=== PATIENT | male | born 1990 | race Caucasian/White ===

== ENCOUNTER 2018-09-21 09:19 | Inpatient (IN) | payer BC, OTHER ==
[2018-09-21 09:43] VITALS: BMI 17.9
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
[2018-09-21] MEDS ORDERED: ACETAMINOPHEN 325 MG TABLET (FP) PO PRN ×2 (10:26)
[2018-09-21] MEDS ORDERED: IBUPROFEN 400 MG TABLET (FP) PO PRN (10:26)
[2018-09-21] MEDS ORDERED: MELATONIN 5 MG TABLETS PO PRN (10:26)
[2018-09-21] MEDS ORDERED: MAGNESIUM HYDROX 2400MG/30ML ORAL SUSPENSION 30 ML CUP PO PRN (10:26)
[2018-09-21] MEDS ORDERED: MAGNESIUM CITRATE 300 ML BOTTLE PO PRN (10:26)
[2018-09-21] MEDS ORDERED: MAG HYDROX/AL HYDROX/SIMETH 30 ML UNIT-DOSE CUP PO PRN (10:26)
[2018-09-21] MEDS ORDERED: BISMUTH SUBSALICYLATE 524 MG/30 ML UD PO PRN (10:26)
[2018-09-21] MEDS ORDERED: NICOTINE POLACRILEX 2 MG GUM BUC PRN (10:26)
[2018-09-21] MEDS ORDERED: MENTHOL/PHENOL 1 EACH UD MM PRN (10:26)
[2018-09-21] MEDS ORDERED: METHADONE HCL 10 MG TABLET (FOR DETOX USE ONLY) PO ONE ×2 (10:45→15:30)
[2018-09-21 15:11] LABS: HEMATOCRIT 41.4 % (35.4-49); HEMOGLOBIN 14.1 GM/dL (11.7-16.9); MCH 30.3 pg (25.7-33.7); MEAN PLT VOLUME 7.3 fl (7.5-11.1); PLATELET COUNT 331 K/MM3 (134-434); RBC 4.66 M/mm3 (4.00-5.60); RDW 14.2 % (11.9-15.9); WHITE BLOOD COUNT 9.5 K/mm3 (4.0-10.0)
[2018-09-21 15:19] VITALS: BP 112/74; PULSE 93; TEMP 97
--- NOTE | 2018-09-21 15:31 | EKG ---
Test Reason : Blood Pressure : / mmHG Vent. Rate : 094 BPM Atrial Rate : 094 BPM P-R Int : 110 ms QRS Dur : 098 ms QT Int : 374 ms P-R-T Axes : 045 074 079 degrees QTc Int : 467 ms SINUS RHYTHM WITH SHORT RI OTHERWISE NORMAL ECG NO PREVIOUS ECGS AVAILABLE Confirmed by MD Na, Td ([id number]) on 09/21/2018 3:31:17 PM Referred By: Confirmed By:Td Monzon MD
[2018-09-21 15:43] LABS: ALBUMIN 3.8 g/dl (3.4-5.0); ALK PHOS 80 U/L (45-117); ANION GAP 7 MMOL/L (8-16); BILIRUBIN,TOTAL 0.6 mg/dL (0.2-1); BLOOD UREA NITROGEN 11 mg/dL (7-18); CALCIUM 9.1 mg/dL (8.5-10.1); CHLORIDE 104 mmol/L (98-107); CO2 28 mmol/L (21-32); CREATININE 0.7 mg/dL (0.55-1.3); GLUCOSE,RANDOM 103 mg/dL (74-106); POTASSIUM 4.5 mmol/L (3.5-5.1); SGOT/AST 31 U/L (15-37); SGPT/ALT 23 U/L (13-61); SODIUM 138 mmol/L (136-145); TOT PROT 7.4 g/dl (6.4-8.2)
[2018-09-21] MEDS ORDERED: THIAMINE HCL 100 MG TABLET (FP) PO SCH (22:00)
[2018-09-22] MEDS ORDERED: PRENATAL VITAMINS W/ FOLIC ACID TABLET (FP) PO SCH (10:00)
[2018-09-22] MEDS ORDERED: METHADONE HCL 5 MG TABLET (FOR DETOX USE ONLY) PO ONE (10:00)
[2018-09-23] MEDS ORDERED: METHADONE HCL 10 MG TABLET (FOR DETOX USE ONLY) PO ONE (10:00)
[2018-09-24] MEDS ORDERED: METHADONE HCL 5 MG TABLET (FOR DETOX USE ONLY) PO ONE (06:00)
== END 2018-09-21 16:09 | disposition left against medical advice (07) | DRG 894 ==
LOC: YASAS 09:19 → Y3N 10:43
PROVIDERS: ADMIT Surgery; ATTEND Surgery
PROC: HZ2ZZZZ Detoxification Services for Substance Abuse Treatment (ICD-10-PCS; principal; 2018-09-21)
DX: F11.23 Opioid dependence with withdrawal (principal); F14.20 Cocaine dependence, uncomplicated; F12.20 Cannabis dependence, uncomplicated; F17.210 Nicotine dependence, cigarettes, uncomplicated
CPT/HCPCS: 36415; 80053; 85027; 86593; 87389; 93005; 93010

== ENCOUNTER 2018-09-21 11:46 | Emergency (ER) | payer BC, OTHER ==
[2018-09-21 11:56] VITALS: TEMP 98; BMI 18.2
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
[2018-09-21 14:31] VITALS: BP 110/60; PULSE 103
== END 2018-09-21 13:03 | disposition home or self-care (01) ==
LOC: JER 11:46
PROC: 2W3CX1Z Immobilization of Right Lower Arm using Splint (ICD-10-PCS; principal; 2018-09-21)
DX: S62.011A Displaced fracture of distal pole of navicular [scaphoid] bone of right wrist, initial encounter for closed fracture (principal); Y04.0XXA Assault by unarmed brawl or fight, initial encounter; Y93.89 Activity, other specified; Y92.018 Other place in single-family (private) house as the place of occurrence of the external cause; Y99.8 Other external cause status
CPT/HCPCS: 73110-TC-RT-FY; 99281-25

== ENCOUNTER 2024-02-27 20:09 | Emergency (ER) | payer BC, OTHER ==
[2024-02-27 20:40] VITALS: TEMP 97.9; BMI 17.4
[2024-02-27 21:09] VITALS: BP 107/68; PULSE 110; RESP 19
== END 2024-02-27 21:27 | disposition home or self-care (01) ==
LOC: FER 20:09
DX: F11.129 Opioid abuse with intoxication, unspecified (principal)
CPT/HCPCS: 99283-25

== ENCOUNTER 2024-03-23 13:23 | Emergency (ER) | payer OTHER ==
[2024-03-23 14:02] VITALS: BP 110/80; PULSE 80; RESP 20; TEMP 98; BMI 24.1
== END 2024-03-23 14:04 | disposition home or self-care (01) ==
LOC: FER 13:23
DX: Z04.1 Encounter for examination and observation following transport accident (principal)
CPT/HCPCS: 99283-25

== ENCOUNTER 2025-01-19 02:26 | Emergency (ER) | payer OTHER ==
[2025-01-19 02:40] VITALS: BP 123/76; PULSE 110; RESP 20; TEMP 98.3; BMI 19.8
== END 2025-01-19 04:45 | disposition left against medical advice (07) ==
LOC: JER 02:26
DX: M79.89 Other specified soft tissue disorders (principal); M25.571 Pain in right ankle and joints of right foot; F41.9 Anxiety disorder, unspecified
CPT/HCPCS: 93005; 93010; 99283-25